=== PATIENT | male | born 2005 | race African-American/Black ===

== ENCOUNTER 2025-01-27 17:46 | Inpatient (IN) | payer MEDICAID, SELFPAY ==
--- OUTSIDE RECORDS SUMMARY | 2025-01-27 17:51 | XMS_ITS | Encounter Summary ---
Author Organization [facility] Address [address] [place] [address] Care Team Providers Care Sleeve Setter Safety Stitch Name Role Phone Jill Chavarria DO Primary Care Provider [phone] Encounter Details Date Type Department Care Team (Latest Contact Info) Description 01/26/2025 Travel Social History Tobacco Use Types Packs/Day Years Used Date Smoking Tobacco: Never Smokeless Tobacco: Never Alcohol Use Standard Drinks/Week Comments Yes 0 (1 standard drink = 0.6 oz pur e alcohol) occ Sex and Gender Information Value Date Recorded Sex Assigned at Male 01/26/2025 4:06 PM EDT Legal Sex Male 12:48 PM EDT Gender Identity Male 01/26/2025 4:06 PM EDT Sexual Orientation Not on file Occupation Industry Job Start Date Job End Date looking to get job at [employer] Not on file Not on andrew e Not on file documented as of this encounter Plan of Treatment Upcoming Encounters Date Type Department Care Team (Late st Contact Info) Description 06/15/2025 5:00 PM EDT Office Visit [facility] [address] [place] [address] Jill Chavarria DO [address] [address] documented as of this encounter Visit Diagnoses Not on filedocumented in this encounter Care Teams Sleeve Setter Safety Stitch Relationship Specialty Start Date End Date Jill Chavarria DO [facility] [address] PCP - General Internal Medicine 03/07/23 documented as of this encounter
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
[2025-01-27 18:00] VITALS: BP 134/80; PULSE 107; RESP 16; TEMP 36.6; O2SAT 97; BMI 20.8
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
[2025-01-27] MEDS: hydrOXYzine HCL 25 MG TABLET PO (19:36)
[2025-01-27 20:00] VITALS: BP 128/68; PULSE 74; RESP 16; TEMP 36.4; O2SAT 98
[2025-01-27] MEDS: Nicotine Polacrilex 2 MG GUM 4 MG BUCCAL (22:10)
[2025-01-28] MEDS: QUEtiapine Fumarate 50 MG TABLET 150 MG PO ×3 (00:03→21:25)
[2025-01-28] MEDS: Melatonin 3 MG TABLET 9 MG PO ×2 (00:04→21:25)
[2025-01-28 08:15] LABS: Estimated Average Glucose 105 mg/dL; Hemoglobin A1C 135.7903 umol/L; Hemoglobin A1c % 5.3 % (<6.0); Total Hemoglobin (HGBA1C) 3949.4661 umol/L
[2025-01-28 08:21] LABS: Cholesterol 148 mg/dL (<200); HDL Cholesterol 49 mg/dL (>40); LDL Cholesterol Calculated 86 mg/dL (<100); Triglycerides 66 mg/dL (<150)
[2025-01-28 08:32] VITALS: BP 117/82; PULSE 72; TEMP 36.8; O2SAT 99
[2025-01-28 08:32] LABS: Free T4 (Free Thyroxine) 1.23 ng/dL (0.71-1.85); Thyroid Stimulating Hormone 1.43 uIU/mL (0.32-4.0)
[2025-01-28 08:48] LABS: Folate 10.1 ng/mL (> or = 4.0); Vitamin B12 900 pg/mL (200-900)
[2025-01-28] MEDS: Nicotine 21 MG PATCH.TD24 TRANSDERMA (09:05)
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
[2025-01-28] MEDS: Lidocaine 4 % Patch ADH..PATCH 1 PATCH TRANSDERMA ×2 (10:15→20:43)
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
[2025-01-28] MEDS: OLANZapine 5 MG TABLET PO (15:13)
--- NOTE | 2025-01-28 17:54 | PC.NURSE ---
security called and asked to do a walk through the unit due to pt threating to start a war and jump over the counter . Awaiting security presence. Pt currently staring at this medical underwriter intensely.
[2025-01-28] MEDS: Nicotine Polacrilex 2 MG GUM 4 MG BUCCAL ×2 (18:18→20:14)
[2025-01-28] MEDS: hydrOXYzine HCL 25 MG TABLET PO (18:18)
[2025-01-28] MEDS: Acetaminophen 325 MG TABLET 650 MG PO (18:44)
[2025-01-28 20:00] VITALS: BP 131/72; PULSE 108; RESP 16; TEMP 36.7; O2SAT 98
[2025-01-28] MEDS: Prazosin HCL 1 MG CAPSULE PO (21:48)
[2025-01-29] MEDS: traZODone HCL 50 MG TABLET PO
[2025-01-29 07:55] VITALS: BP 118/67; PULSE 95; TEMP 36.3; O2SAT 98
[2025-01-29] MEDS: Lidocaine 4 % Patch ADH..PATCH 1 PATCH TRANSDERMA (08:37)
[2025-01-29] MEDS: QUEtiapine Fumarate 50 MG TABLET 150 MG PO ×2 (08:37→21:39)
[2025-01-29] MEDS: Nicotine 21 MG PATCH.TD24 TRANSDERMA (08:38)
[2025-01-29] MEDS: hydrOXYzine HCL 25 MG TABLET PO (08:40)
[2025-01-29 08:42] LABS: MANUAL DIFF FLAG NO
[2025-01-29 08:44] LABS: Basophils Percent Auto 0.4 % (0-2); Eosinophils Absolute Auto 0.1 X10*3/uL (0.0-0.4); Eosinophils Percent Auto 1.5 % (0-4); Hematocrit 44.2 % (42.0-52.0); Imm Gran Abs Auto 0.02 X10*3/uL (0.00-0.03); Imm Gran Pct Auto 0.4 % (0.0-0.4); Lymphocytes Absolute Auto 2.6 X10*3/uL (1.2-4.9); Lymphocytes Percent Auto 53.6 % (20-40); Mean Corpuscular HGB Conc 33.9 g/dl (31.0-36.0); Mean Corpuscular Hemoglobin 30.9 pg (27.0-33.0); Mean Corpuscular Volume 91.1 fL (80.0-98.0); Mean Platelet Volume 10.4 fL (9.4-12.4); Monocytes Absolute Auto 0.5 X10*3/uL (0.1-1.2); Neutrophils Absolute Auto 1.6 x10*3/uL (2.0-8.3); Neutrophils Percent Auto 34.1 % (45-73); Platelet Count 263 X10*3/uL (160-400); Red Blood Count 4.85 X10*6/uL (4.60-5.80); Red Cell Distribution Width 12.7 % (11.0-16.0); White Blood Count 4.8 X10*3/uL (4.8-10.8)
[2025-01-29 09:04] LABS: Alanine Aminotransferase 17 U/L (0-40); Albumin Level 4.8 g/dL (3.5-5.0); Alkaline Phosphatase 74 U/L (39-117); Anion Gap 13 (12-20); Aspartate Amino Transferase 29 U/L (5-37); Bilirubin Total 0.6 mg/dL (0.0-1.0); Blood Urea Nitrogen 12 mg/dL (9-16); Calcium 9.9 mg/dL (8.4-10.2); Carbon Dioxide 30 mmol/L (22-29); Chloride 103 mmol/L (96-108); Creatinine Clr Calc Pharmacy 117.6; Estimated Glomerular Filt Rate > 60; Glucose Random 94 mg/dL (60-115); Potassium 4.4 mmol/L (3.3-5.1); Sodium 142 mmol/L (135-145); Total Protein 7.8 g/dL (6.5-8.0)
[2025-01-29] MEDS: OLANZapine 5 MG TABLET PO ×2 (09:11→12:28)
--- NOTE | 2025-01-29 09:38 | P.PNPSI_ITS ---
Subjective Subjective Date of Service: 01/29/25 Reason For Visit: PTSD Subjective Notes: Section 12B Interim History: Pt feeling threatened by peers on the unit and has been threatening. Accepts Olanzapine/Lorazepam Asks to return to [facility] unit Paranoia persists Medication Compliance: Intermittent Review of Systems Review of Systems Denies Mental Status Exam Mental Status Exam Patient Appearance: Fatigued Patient Orientation: Person Level of Consciousness: Alert Patient Behavior: Guarded, Suspicious, Anxious, Fearful, Fatigued, Crying and Poor Eye Contact Mood Description: Sad Affect Description: Flat Ability to Follow Directions: Good Speech Pattern: Impoverished, Spontaneous Speech and Soft-Spoken Thought Process: Distracted and Rumination Thought Content: positive for Perseveration Judgement: Poor Diagnostics Vital Signs (24Hr): Vital Signs - 24 hr 01/28/25 20:00 01/29/25 07:55 Temperature 98.1 F 97.4 F Pulse Rate 108 H 95 Respiratory Rate 16 Blood Pressure 131/72 118/67 Pulse Oximetry 98 98 Oxygen Delivery Method Room Air Room Air BMI result Body Mass Index 20.8 Labs 01/29/25 08:20 01/29/25 08:20 Labs: Laboratory Results - last 48 hr 01/28/25 01/29/25 07:34 08:20 WBC 4.8 RBC 4.85 Hgb 15.0 Hct 44.2 MCV 91.1 MCH 30.9 MCHC 33.9 RDW 12.7 Plt Count 263 MPV 10.4 Immature Gran % (Auto) 0.4 Neut % (Auto) 34.1 L Lymph % (Auto) 53.6 H [place] % (Auto) 10.0 Eos % (Auto) 1.5 Baso % (Auto) 0.4 Lymph # (Auto) 2.6 [place] # (Auto) 0.5 Eos # (Auto) 0.1 Baso # (Auto) 0.0 Abs Immat Gran (auto) 0.02 Absolute Neuts (auto) 1.6 L Absolute Nucleated RBC 0.000 Nucleated RBC % (auto) 0.0 Sodium 142 Potassium 4.4 Chloride 103 Carbon Dioxide 30 H Anion Gap 13 BUN 12 Creatinine 1.09 Estim Creat Clear Calc 117.6 Estimated GFR > 60 Random Glucose 94 Estimat Average Glucose 105 Hemoglobin A1c % 5.3 Calcium 9.9 Total Bilirubin 0.6 AST 29 ALT 17 Alkaline Phosphatase 74 Total Protein 7.8 Albumin 4.8 Triglycerides 66 Cholesterol 148 LDL Cholesterol, Calc 86 HDL Cholesterol 49 Vitamin B12 900 Folate 10.1 TSH 1.43 Free T4 1.23 Medications Medications Current Medications Acetaminophen (Acetaminophen 325 Mg Tablet) 650 mg PO Q6H PRN PRN Reason: Headache/Pain, Scale 1-10 Last Admin: 01/28/25 18:44 Dose: 650 mg Al Hydroxide/Mg Hydroxide (Magnesium Hydrox/Alum Hydrox 30 Ml Oral.Susp) 30 ml PO Q6H PRN PRN Reason: Heartburn/Nausea Hydroxyzine HCl (Hydroxyzine Hcl 25 Mg Tablet) 25 mg PO Q6H PRN PRN Reason: mild anxiety Last Admin: 01/29/25 08:40 Dose: 25 mg Lidocaine (Lidocaine 4 % Patch Adh..Patch) 1 patch TRANSDERMA DAILY [facility]; Protocol Last Admin: 01/29/25 08:37 Dose: 1 patch Magnesium Hydroxide (Milk Of Magnesia 30 Ml Oral.Susp) 30 ml PO DAILY PRN PRN Reason: Constipation Melatonin (Melatonin 3 Mg Tablet) 9 mg PO BEDTIME [facility] Last Admin: 01/28/25 21:25 Dose: 9 mg Nicotine (Nicotine 21 Mg Patch.Td24) 21 mg TRANSDERMA DAILY [facility] Last Admin: 01/29/25 08:38 Dose: 21 mg Nicotine Polacrilex (Nicotine Polacrilex 2 Mg Gum) 4 mg BUCCAL Q2H PRN PRN Reason: Nicotine Cravings Last Admin: 01/28/25 20:14 Dose: 4 mg Olanzapine (Olanzapine 5 Mg Tablet) 5 mg PO Q4H PRN PRN Reason: agitation Last Admin: 01/29/25 09:11 Dose: 5 mg Olanzapine (Olanzapine Odt 10 Mg Tab.Rapdis) 10 mg TRANSLINGU BEDTIME [facility] Prazosin HCl (Prazosin Hcl 1 Mg Capsule) 1 mg PO BEDTIME [facility]; Protocol Last Admin: 01/28/25 21:48 Dose: 1 mg Quetiapine Fumarate (Quetiapine Fumarate 50 Mg Tablet) 150 mg PO BID [facility] Last Admin: 01/29/25 08:37 Dose: 150 mg Trazodone HCl (Trazodone Hcl 50 Mg Tablet) 50 mg PO BEDTIME MRX1 PRN PRN Reason: Insomnia Last Admin: 01/29/25 00:00 Dose: 50 mg Allergies Allergies Allergy/AdvReac Type Severity Reaction Status Date / Time No Known Allergies Allergy Verified 01/27/25 18:59 Assessment & Plan Assessment & Plan (1) PTSD (post-traumatic stress disorder): Status: Acute Code(s): F43.10 - Post-traumatic stress disorder, unspecified (2) Schizophrenia: Status: Acute Code(s): F20.9 - Schizophrenia, unspecified Plan Admit, 12B, 15 minute checks Attempt alliance Continue Seroquel, med eval as we obtain more information Collateral contact Diagnostics as needed Encourage milieu participation Discharge planning 01/29: Continue regime/plan 01/31-contact with [facility] about the possibility of pt returning-his request Reason for continued inpatient stay Substantial Risk for: rapid decompensation Time Spent With Patient Time: Total time managing care of this patient today ____ minutes.
[2025-01-29] MEDS: Acetaminophen 325 MG TABLET 650 MG PO (10:53)
[2025-01-29] MEDS: LORazepam 1 MG TABLET 2 MG PO (13:28)
[2025-01-29 20:00] VITALS: BP 131/78; PULSE 105; RESP 16; TEMP 36.2; O2SAT 100
[2025-01-29] MEDS: Melatonin 3 MG TABLET 9 MG PO (21:39)
[2025-01-29] MEDS: OLANZapine ODT 10 MG TAB.RAPDIS TRANSLINGU (21:39)
[2025-01-30] MEDS: Nicotine 21 MG PATCH.TD24 TRANSDERMA (07:47)
[2025-01-30] MEDS: QUEtiapine Fumarate 50 MG TABLET 150 MG PO ×2 (07:48→22:22)
[2025-01-30] MEDS: hydrOXYzine HCL 25 MG TABLET PO (07:49)
[2025-01-30 07:57] VITALS: BP 136/68; PULSE 103; TEMP 36.4; O2SAT 100
--- NOTE | 2025-01-30 08:42 | HO.PSYCHPN ---
Subjective Subjective Date of Service: 01/30/25 Reason For Visit: PTSD Interim History: Today: Visible on unit, will approach staff for needs, but mostly keeps to self. Appears calm but anxious, subdued, quietly paranoid. He is approachable but relays not liking being here (inpt) and is hoping to be discharged soon. He refers to plan of being transfered to another facility, that had been previously discussed, but says at thi time he does not want to do this. I just want to stay here so I can be discharged from here (to home). I signed a 3 day . He cites reasons for wanting to get home due to missing out of his siblings' birthdays. He has not been eating or sleeping well he says. I dont want to snitch, but the food is not safe . Suggests someone may be poisoning food but does not elaborate. Denies any AH and VH and promptly adds I dont have schizophrenia Clarifies that his diagnose it PTSD only. Olanzapine has been helpful he says. He would like an increase in VIstaril for anxiety. Denies any SI or HI. Friday: Pt feeling threatened by peers on the unit and has been threatening. Accepts Olanzapine/Lorazepam Asks to return to [facility] unit Paranoia persists Review of Systems Review of Systems Denies Yes all other systems are reviewed and are negative and Unobtainable due to mental status Mental Status Exam Mental Status Exam Patient Appearance: Fatigued Patient Orientation: Person Level of Consciousness: Alert Patient Behavior: Guarded, Suspicious, Anxious, Fearful, Fatigued, Crying and Poor Eye Contact Mood Description: Sad Affect Description: Flat Ability to Follow Directions: Good Speech Pattern: Impoverished, Spontaneous Speech and Soft-Spoken Diagnostics Vital Signs (24Hr): Vital Signs - 24 hr 01/29/25 20:00 01/30/25 07:57 Temperature 97.2 F 97.5 F Pulse Rate 105 H 103 H Respiratory Rate 16 Blood Pressure 131/78 136/68 Pulse Oximetry 100 100 Oxygen Delivery Method Room Air Room Air BMI result Body Mass Index 20.8 Labs 01/29/25 08:20 01/29/25 08:20 Labs: Laboratory Results - last 48 hr 01/28/25 01/29/25 07:34 08:20 WBC 4.8 RBC 4.85 Hgb 15.0 Hct 44.2 MCV 91.1 MCH 30.9 MCHC 33.9 RDW 12.7 Plt Count 263 MPV 10.4 Immature Gran % (Auto) 0.4 Neut % (Auto) 34.1 L Lymph % (Auto) 53.6 H [place] % (Auto) 10.0 Eos % (Auto) 1.5 Baso % (Auto) 0.4 Lymph # (Auto) 2.6 [place] # (Auto) 0.5 Eos # (Auto) 0.1 Baso # (Auto) 0.0 Abs Immat Gran (auto) 0.02 Absolute Neuts (auto) 1.6 L Absolute Nucleated RBC 0.000 Nucleated RBC % (auto) 0.0 Sodium 142 Potassium 4.4 Chloride 103 Carbon Dioxide 30 H Anion Gap 13 BUN 12 Creatinine 1.09 Estim Creat Clear Calc 117.6 Estimated GFR > 60 Random Glucose 94 Calcium 9.9 Total Bilirubin 0.6 AST 29 ALT 17 Alkaline Phosphatase 74 Total Protein 7.8 Albumin 4.8 Vitamin B12 900 Folate 10.1 Medications Medications Current Medications Acetaminophen (Acetaminophen 325 Mg Tablet) 650 mg PO Q6H PRN PRN Reason: Headache/Pain, Scale 1-10 Last Admin: 01/29/25 10:53 Dose: 650 mg Al Hydroxide/Mg Hydroxide (Magnesium Hydrox/Alum Hydrox 30 Ml Oral.Susp) 30 ml PO Q6H PRN PRN Reason: Heartburn/Nausea Hydroxyzine HCl (Hydroxyzine Hcl 25 Mg Tablet) 25 mg PO Q6H PRN PRN Reason: mild anxiety Last Admin: 01/30/25 07:49 Dose: 25 mg Lidocaine (Lidocaine 4 % Patch Adh..Patch) 1 patch TRANSDERMA DAILY [facility]; Protocol Last Admin: 01/30/25 07:50 Dose: Not Given Magnesium Hydroxide (Milk Of Magnesia 30 Ml Oral.Susp) 30 ml PO DAILY PRN PRN Reason: Constipation Melatonin (Melatonin 3 Mg Tablet) 9 mg PO BEDTIME [facility] Last Admin: 01/29/25 21:39 Dose: 9 mg Nicotine (Nicotine 21 Mg Patch.Td24) 21 mg TRANSDERMA DAILY [facility] Last Admin: 01/30/25 07:47 Dose: 21 mg Nicotine Polacrilex (Nicotine Polacrilex 2 Mg Gum) 4 mg BUCCAL Q2H PRN PRN Reason: Nicotine Cravings Last Admin: 01/28/25 20:14 Dose: 4 mg Olanzapine (Olanzapine 5 Mg Tablet) 5 mg PO Q4H PRN PRN Reason: agitation Last Admin: 01/29/25 12:28 Dose: 5 mg Olanzapine (Olanzapine Odt 10 Mg Tab.Rapdis) 10 mg TRANSLINGU BEDTIME [facility] Last Admin: 01/29/25 21:39 Dose: 10 mg Prazosin HCl (Prazosin Hcl 1 Mg Capsule) 1 mg PO BEDTIME [facility]; Protocol Last Admin: 01/29/25 21:36 Dose: Not Given Quetiapine Fumarate (Quetiapine Fumarate 50 Mg Tablet) 150 mg PO BID [facility] Last Admin: 01/30/25 07:48 Dose: 150 mg Trazodone HCl (Trazodone Hcl 50 Mg Tablet) 50 mg PO BEDTIME MRX1 PRN PRN Reason: Insomnia Last Admin: 01/29/25 00:00 Dose: 50 mg Allergies Allergies Allergy/AdvReac Type Severity Reaction Status Date / Time No Known Allergies Allergy Verified 01/27/25 18:59 Assessment & Plan Assessment & Plan (1) PTSD (post-traumatic stress disorder): Status: Acute Code(s): F43.10 - Post-traumatic stress disorder, unspecified (2) Schizophrenia: Status: Acute Code(s): F20.9 - Schizophrenia, unspecified Plan Admit, 12B, 15 minute checks Attempt alliance Continue Seroquel, med eval as we obtain more information Collateral contact Diagnostics as needed Encourage milieu participation Discharge planning 01/29: Continue regime/plan 01/30: continue trtmt 01/31-contact with [facility] about the possibility of pt returning-his request Reason for continued inpatient stay Substantial Risk for: med/psych decompensation Time Spent With Patient Time: Total time managing care of this patient today ____ minutes.
[2025-01-30] MEDS: OLANZapine 5 MG TABLET PO (12:15)
[2025-01-30] MEDS: Lidocaine 4 % Patch ADH..PATCH 1 PATCH TRANSDERMA (14:42)
[2025-01-30 20:00] VITALS: BP 137/79; PULSE 109; RESP 16; TEMP 36.9; O2SAT 97
[2025-01-30] MEDS: OLANZapine ODT 10 MG TAB.RAPDIS TRANSLINGU (22:22)
[2025-01-30] MEDS: hydrOXYzine HCL 50 MG TABLET PO (22:22)
[2025-01-30] MEDS: Melatonin 3 MG TABLET 9 MG PO (22:23)
[2025-01-31 08:00] VITALS: BP 127/79; PULSE 96; RESP 18; TEMP 36.7; O2SAT 100
[2025-01-31] MEDS: QUEtiapine Fumarate 50 MG TABLET 150 MG PO ×2 (08:17→21:42)
[2025-01-31] MEDS: Nicotine 21 MG PATCH.TD24 TRANSDERMA (08:17)
[2025-01-31] MEDS: OLANZapine 5 MG TABLET PO (10:33)
[2025-01-31] MEDS: Lidocaine 4 % Patch ADH..PATCH 1 PATCH TRANSDERMA (10:34)
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
[2025-01-31] MEDS: hydrOXYzine HCL 50 MG TABLET PO (14:40)
[2025-01-31 20:00] VITALS: BP 120/69; PULSE 94; RESP 16; TEMP 36.4; O2SAT 99
[2025-01-31] MEDS: Melatonin 3 MG TABLET 9 MG PO (21:42)
[2025-01-31] MEDS: OLANZapine ODT 10 MG TAB.RAPDIS TRANSLINGU (21:42)
[2025-02-01 08:00] VITALS: BP 121/83; PULSE 90; TEMP 36.4; O2SAT 98
[2025-02-01] MEDS: QUEtiapine Fumarate 50 MG TABLET 150 MG PO (08:27)
[2025-02-01] MEDS: Nicotine 21 MG PATCH.TD24 TRANSDERMA (08:28)
[2025-02-01] MEDS: Lidocaine 4 % Patch ADH..PATCH 1 PATCH TRANSDERMA (08:30)
[2025-02-01] MEDS: OLANZapine 5 MG TABLET PO (10:05)
--- NOTE | 2025-02-01 16:22 | P.DS_ITS ---
DS: Providers Provider Date of admission: 01/27/25 17:46 Primary care physician: Unknown Physician Consults: 01/27/25 18:02 Consult to Hospitalist Routine Comment: Consulting Provider: [facility] Hospitalists Reason For Exam: OSH admission DS: Diagnosis Discharge Diagnosis (1) PTSD (post-traumatic stress disorder): Status: Acute (2) Schizophrenia: Status: Acute DS: Medications Discharge Medications Home Medications: Previous Rx's ?Medication ?Instructions ?Recorded acetaminophen 325 mg tablet 650 mg (2 x 325 mg) PO Q6H PRN 01/31/25 Headache/Pain, Scale 1-10 #0 tabs gabapentin 300 mg capsule 300 mg PO BID #60 caps 01/31/25 hydroxyzine HCl 50 mg tablet 50 mg PO Q6H PRN mild anxiety #30 01/31/25 tabs lidocaine 4 % topical patch 1 patch transdermal DAILY #30 ea 01/31/25 (Lidocaine Pain Relief) nicotine (polacrilex) 2 mg gum 4 mg buccal Q2H PRN Nicotine 01/31/25 Cravings #100 ea nicotine 21 mg/24 hr daily 21 mg transdermal DAILY #30 ea 01/31/25 transdermal patch olanzapine 10 mg disintegrating 10 mg translingual BEDTIME #30 tabs 01/31/25 tablet quetiapine 100 mg tablet (Seroquel) 100 mg PO BID #60 tabs 01/31/25 quetiapine 50 mg tablet (Seroquel) 50 mg PO BID #60 tabs 01/31/25 trazodone 50 mg tablet 50 mg PO BEDTIME MRX1 PRN Insomnia 01/31/25 #30 tabs Data Data Completed and Pending Completed studies during hospitalization [Text1]: 01/28/25 01/29/25 07:34 08:20 WBC 4.8 RBC 4.85 Hgb 15.0 Hct 44.2 MCV 91.1 MCH 30.9 MCHC 33.9 RDW 12.7 Plt Count 263 MPV 10.4 Immature Gran % (Auto) 0.4 Neut % (Auto) 34.1 L Lymph % (Auto) 53.6 H [place] % (Auto) 10.0 Eos % (Auto) 1.5 Baso % (Auto) 0.4 Lymph # (Auto) 2.6 [place] # (Auto) 0.5 Eos # (Auto) 0.1 Baso # (Auto) 0.0 Abs Immat Gran (auto) 0.02 Absolute Neuts (auto) 1.6 L Absolute Nucleated RBC 0.000 Nucleated RBC % (auto) 0.0 Sodium 142 Potassium 4.4 Chloride 103 Carbon Dioxide 30 H Anion Gap 13 BUN 12 Creatinine 1.09 Estim Creat Clear Calc 117.6 Estimated GFR > 60 Random Glucose 94 Estimat Average Glucose 105 Hemoglobin A1c % 5.3 Calcium 9.9 Total Bilirubin 0.6 AST 29 ALT 17 Alkaline Phosphatase 74 Total Protein 7.8 Albumin 4.8 Triglycerides 66 Cholesterol 148 LDL Cholesterol, Calc 86 HDL Cholesterol 49 Vitamin B12 900 Folate 10.1 TSH 1.43 Free T4 1.23 DS: Summary Time Spent with Patient Time attestation: Total time managing care of this patient today ____ minutes. Discharge Plan Discharge Anticipated Discharge Date/Time: 02/01/25 15:00 Patient Disposition: Home, Self-Care Discharge Diagnosis: PTSD Referrals: [facility] [Other] - 3-5 Days (Please follow up with them to begin [facility] services again in the community. ) Dr Jill Chavarria [facility] [Other] - 02/04/25 11:30 am (PCP/PSYCH Appointment in office. ) Discharge Medications: New acetaminophen 325 mg Tablet 650 mg PO Q6H PRN (Reason: Headache/Pain, Scale 1-10) Qty: 0 0RF gabapentin 300 mg capsule 300 mg PO BID Qty: 60 0RF lidocaine [Lidocaine Pain Relief] 4 % Adhesive Patch,Medicated 1 patch transdermal DAILY Qty: 30 0RF Protocol: Apply to: Apply to: back trazodone 50 mg Tablet 50 mg PO BEDTIME MRX1 PRN (Reason: Insomnia) Qty: 30 0RF nicotine (polacrilex) 2 mg Gum 4 mg buccal Q2H PRN (Reason: Nicotine Cravings) Qty: 100 0RF hydroxyzine HCl 50 mg Tablet 50 mg PO Q6H PRN (Reason: mild anxiety) Qty: 30 0RF nicotine 21 mg/24 hr Patch 24 Hour 21 mg transdermal DAILY Qty: 30 0RF olanzapine 10 mg Tablet,Disintegrating 10 mg translingual BEDTIME Qty: 30 0RF quetiapine [Seroquel] 100 mg tablet 100 mg PO BID Qty: 60 0RF Rx Instructions: 150 mg twice per day quetiapine [Seroquel] 50 mg tablet 50 mg PO BID Qty: 60 0RF Rx Instructions: 150 mg twice per day Discharge Orders: Discharge Order (Routine); Ordered 02/01/25 Ordered By: Ashley Sanchez Diet: Advance to usual diet Activity on Discharge: As tolerated Stand Alone Forms: Patient Portal Discharge page, Community Support Print Language: Lithuanian Care Plan Goals: Mood and Behavioral Stabilization Health Concerns: Mood and Behavioral Stabilization Plan of Treatment: Attend scheduled appointments Take medications as directed Assessment: Darrinies SI,HI,AH,VH No sx of acute psychosis or brandon Agrees with plan of care Ending of Section 12B Discharge Date/Time: 02/01/25 11:20
== END 2025-02-01 11:20 | disposition home or self-care (01) | DRG 750 ==
PROVIDERS: Psychiatry & Neurology Psychiatry; Admitting Provider Psychiatry & Neurology Psychiatry; Visit Provider Clinical Nurse Specialist Psychiatric/Mental Health, Adult
DX: F20.9 Schizophrenia, unspecified (principal); F17.210 Nicotine dependence, cigarettes, uncomplicated; F43.10 Post-traumatic stress disorder, unspecified; Z71.6 Tobacco abuse counseling; W34.00XS Accidental discharge from unspecified firearms or gun, sequela; Z79.899 Other long term (current) drug therapy
CPT/HCPCS: 36415; 80053; 80061; 82607; 82746; 83036; 84439; 84443; 85025

== ENCOUNTER → 2025-01-27 17:46 | Outpatient (BNV) | payer SELFPAY | PROVIDERS: Admitting Provider Psychiatry & Neurology Psychiatry; Visit Provider Student in an Organized Health Care Education/Training Program | DX: Z02.2 Encounter for examination for admission to residential institution (principal) | CPT/HCPCS: 99429 ==

== ENCOUNTER → 2025-01-27 17:46 | Outpatient (BNV) | payer OTHER, SELFPAY | PROVIDERS: Admitting Provider Psychiatry & Neurology Psychiatry; Visit Provider Clinical Nurse Specialist Psychiatric/Mental Health, Adult | DX: F20.0 Paranoid schizophrenia (principal); F43.11 Post-traumatic stress disorder, acute | CPT/HCPCS: 99231 ==